=== PATIENT | female | born 1995 | race Caucasian/White ===

== ENCOUNTER 2019-10-20 16:37 | Emergency (ER) | payer SELFPAY ==
[~2019-10-20] VITALS: Ht 157.5 cm; Wt 52.2 kg
--- NOTE | 2019-10-20 16:39 | NUR ---
PT BIBA TO BED 11.
[2019-10-20 16:40] VITALS: BP 113/65
--- NOTE | 2019-10-20 16:43 | NUR ---
24 Y/O FEMALE BIBA PRESENTING WITH C/C OF FEVER,N/V X2 DAYS. PER PATIENT HAS HAD A FEVER THAT "DOESNT GO AWAY". PER PT NKA. NO MEDICAL HX. NO RX. PER PATIENT LMP "SOMETIME LAST MONTH, DONT KNOW IF , USED THE AFTERPILL" SIDE RAIL X1.
[2019-10-20] MEDS ORDERED: ACETAMINOPHEN EXTRA STRENGTH 500 MG TAB ONE (16:45)
[2019-10-20] MEDS ORDERED: IBUPROFEN 600 MG TAB ONE (16:45)
[2019-10-20] MEDS: ACETAMINOPHEN EXTRA STRENGTH 500 MG TAB PO ONE (16:47)
[2019-10-20] MEDS: IBUPROFEN 600 MG TAB PO ONE (16:47)
--- NOTE | 2019-10-20 17:18 | NUR ---
XRAY AT BEDSIDE; PORTABLE
[2019-10-20] MEDS: HYDROcodone/APAP 5/325 MG 1 TAB TAB PO ONE (17:27)
[2019-10-20] MEDS: KETOROLAC 30 MG/ML VIAL IVP ONE (17:30)
[2019-10-20] MEDS: ONDANSETRON 4 MG/2 ML VIAL IVP ONE (17:33)
[2019-10-20] MEDS: NACL 0.9% 1,000 ML IV ONE ×2 (17:35→19:21)
[2019-10-20 18:19] LABS: BASOPHILS % (AUTO) 0.4 % (0.0-2.0); EOSINOPHILS % (AUTO) 0.4 % (0.0-4.0); HEMATOCRIT 35.5 % (36-48); HEMOGLOBIN 11.8 g/dL (12.0-16.0); LYMPHOCYTES # (AUTO) 0.7 K/uL (2.5-16.5); LYMPHOCYTES % (AUTO) 20.1 % (20.5-51.1); MEAN CORPUSCULAR HEMOGLOBIN 30 pg (27-31); MEAN CORPUSCULAR HGB CONC 33 g/dL (33-37); MEAN CORPUSCULAR VOLUME 90.8 fL (80-94); MONOCYTES # (AUTO) 0.6 K/uL (0.8-1.0); MONOCYTES % (AUTO) 19.2 % (1.7-9.3); NEUTROPHILS % (AUTO) 59.9 % (42.2-75.2); PLATELET COUNT (AUTO) 133 K/uL (140-450); RED BLOOD CELL COUNT(AUTO) 3.92 MIL/uL (4.20-5.40); RED CELL DISTRIBUTION WIDTH 12.4 % (11.6-13.7); WHITE BLOOD COUNT (AUTO) 3.4 K/uL (4.8-10.8)
[2019-10-20 18:53] LABS: ALBUMIN 3.2 g/dL (3.4-5.0); CARBON DIOXIDE 25.9 mmol/L (21-32); CREATININE 0.7 mg/dL (0.6-1.3); TOTAL BILIRUBIN 0.5 mg/dL (0.0-1.0)
[2019-10-20 18:54] LABS: POTASSIUM 2.9 mmol/L (3.5-5.1)
--- NOTE | 2019-10-20 19:12 | NUR ---
REPORT RECEIVED FROM TRISTON AGUIAR, PATIENT IS ALERT AND ORIENTED, BREATHING EVEN AND UNLABORED. WILL CONTINUE TO MONITOR.
--- NOTE | 2019-10-20 19:12 | NUR ---
report given to tristan scruggs and ramesh scruggs
[2019-10-20] MEDS: POTASSIUM CHLORIDE 10 MEQ TABER PO ONE (19:17)
[2019-10-20] MEDS: MAGNESIUM OXIDE 400 MG TAB PO ONE (19:35)
[2019-10-20 20:30] VITALS: BP 100/69
--- NOTE | 2019-10-20 20:30 | NUR ---
Patient discharged with v/s stable. Written and verbal after care instructions ABOUT HYPOKALEMIA (BRIEF) given and explained. Patient alert, oriented and verbalized understanding of instructions. Ambulatory with steady gait. All questions addressed prior to discharge. ID band removed. Patient advised to follow up with PMD. Rx of ZOFRAN, PROMETHAZINE, NAPROSYN given. Patient educated on indication of medication including possible reaction and side effects. Opportunity to ask questions provided and answered.
--- NOTE | 2019-10-21 09:52 | NUR ---
Late entry. Confirmed with RN that 0.9 NS IV completed at 1835
== END 2019-10-20 20:30 | disposition home or self-care (01) ==
LOC: MED 16:37
DX: B34.9 Viral infection, unspecified (principal); E87.6 Hypokalemia; R11.2 Nausea with vomiting, unspecified; F17.210 Nicotine dependence, cigarettes, uncomplicated; Z71.6 Tobacco abuse counseling
CPT/HCPCS: 36415; 71045; 80053; 81002; 81025; 85025; 96361; 96374; 96375; 99284; J1885; J2405

== ENCOUNTER 2024-01-22 02:05 | Emergency (ER) | payer OTHER ==
[~2024-01-22] VITALS: Ht 154.9 cm; Wt 49.9 kg
[2024-01-22 03:00] VITALS: BP 120/70; PULSE 65; RESP 17; TEMP 98; O2SAT 98
[2024-01-22 03:03] VITALS: O2SAT 98
[2024-01-22] MEDS ORDERED: AMOX1TAB8 PO (03:50)
[2024-01-22] MEDS ORDERED: BACTO TP (03:51)
[2024-01-22] MEDS: AMOXIL/CLAVULANATE 875/125 MG 1 TAB PO ONE (04:07)
== END 2024-01-22 04:07 | disposition home or self-care (01) ==
LOC: MED 02:05
DX: H60.11 Cellulitis of right external ear (principal); J45.909 Unspecified asthma, uncomplicated; Z79.899 Other long term (current) drug therapy
CPT/HCPCS: 99283